=== PATIENT | female | born 1995 | race Caucasian/White ===

== ENCOUNTER 2021-01-11 16:53 | Outpatient (CLI) | payer OTHER ==
[~2021-01-11] VITALS: Ht 157.5 cm; Wt 80.5 kg
[2021-01-11] MEDS ORDERED: ONDANSETRON 2MG/ML, 2ML IVPush ONE (17:00)
[2021-01-11] MEDS ORDERED: LACTATED RINGERS 1,000 ML IV SCH (17:00)
[2021-01-11] MEDS ORDERED: D5%-LACTATED RINGERS 1,000 ML IV SCH (17:00)
[2021-01-11 17:27] VITALS: BP 118/70
[2021-01-11 17:55] LABS: MICROSCOPIC INDICATED
[2021-01-11] MEDS ORDERED: ONDA4TAB7 PO (20:10)
== END 2021-01-11 20:24 | disposition home or self-care (01) ==
LOC: LDOP 16:53
PROVIDERS: ATTEND Student in an Organized Health Care Education/Training Program
DX: O21.2 Late vomiting of pregnancy (principal); Z3A.34 34 weeks gestation of pregnancy
CPT/HCPCS: 59025; 81001; 81003; 87086; 96361; 96374; J2405; J7120; J7121; 96372